=== PATIENT | female | born 1965 | race Caucasian/White ===

== ENCOUNTER 2021-01-26 12:42 | Inpatient (IN) | payer BC ==
[~2021-01-26] VITALS: Ht 157.5 cm; Wt 65.5 kg
[2021-01-26 15:01] LABS: HEMOGLOBIN 15.4 gm/dl (12.3-15.3); RED BLOOD COUNT 4.63 M/UL (4.00-5.10); WHITE BLOOD COUNT 14.2 K/UL (4.5-11.0)
[2021-01-26 15:38] LABS: BUN/CREATININE RATIO 10 (0-10)
[2021-01-26] MEDS ORDERED: ADVAIR 100-501 EACH INH (21:23)
[2021-01-26] MEDS ORDERED: LISINOPRIL10 MG PO (21:27)
[2021-01-27 08:43] LABS: HEMOGLOBIN 13.6 gm/dl (12.3-15.3); RED BLOOD COUNT 4.17 M/UL (4.00-5.10); WHITE BLOOD COUNT 10.8 K/UL (4.5-11.0)
[2021-01-27 09:01] LABS: BUN/CREATININE RATIO 7 (0-10)
[2021-01-27] MEDS ORDERED: ADVAIR 100-501 EACH INH (21:25)
[2021-01-27] MEDS ORDERED: PROAIR HFA8.5 GM INH (21:26)
[2021-01-28 03:42] LABS: HEMOGLOBIN 13.6 gm/dl (12.3-15.3); RED BLOOD COUNT 4.19 M/UL (4.00-5.10)
[2021-01-28 03:43] LABS: BUN/CREATININE RATIO 8 (0-10); WHITE BLOOD COUNT 6.5 K/UL (4.5-11.0)
[2021-01-29 04:16] LABS: HEMOGLOBIN 13.3 gm/dl (12.3-15.3); RED BLOOD COUNT 4.1 M/UL (4.00-5.10); WHITE BLOOD COUNT 5.7 K/UL (4.5-11.0)
[2021-01-29 04:37] LABS: BUN/CREATININE RATIO 15 (0-10)
[2021-01-29] MEDS ORDERED: COLACE100 MG PO (09:10)
[2021-01-29] MEDS ORDERED: FLAGYL500 MG PO (09:10)
[2021-01-29] MEDS ORDERED: CIPRO500 MG PO (09:10)
== END 2021-01-29 10:49 | disposition home or self-care (01) | DRG 392 ==
LOC: ER1 12:42 → CDU 17:02 → MED SURG 4 20:35
PROVIDERS: Physician Assistant; Surgery; ADMIT Surgery
DX: K57.20 Diverticulitis of large intestine with perforation and abscess without bleeding (principal); I10 Essential (primary) hypertension; J45.909 Unspecified asthma, uncomplicated; F32.9 Major depressive disorder, single episode, unspecified; F41.9 Anxiety disorder, unspecified; Z20.822 Contact with and (suspected) exposure to COVID-19
CPT/HCPCS: 36415; 80048; 80053; 81001; 82150; 83690; 83735; 85025; 85027; 94640; 94664; 94760; 99285; J1650; J1956; J2543; J3480; Q9967; U0002